=== PATIENT | male | born 1985 | race Two or more races ===

== ENCOUNTER 2020-04-09 09:49 | Inpatient (IN) | payer OTHER ==
--- NOTE | 2020-04-09 10:40 | BHS.RME ---
Substance Use & Tx History - Substance Use History Heroin Substance amount: 5 bags Frequency of use: Daily Substance route: Inhalation (ex: sniffing or snorting) Date of Last Use: 04/09/20 (4am) Marijuana/Hashish Substance amount: 1 joint Frequency of use: Less than 3 times per week Substance route: Smoking Date of Last Use: 04/05/20 Nicotine Substance amount: 1pack Frequency of use: Daily Substance route: Smoking Date of Last Use: 04/09/20 Physical/Psych/Mental Status - Behavior General Behavior: Increased activity (restlessness, agitation) Eye Contact: Normal - Cooperativeness Cooperativeness: Cooperative - Thinking Thought Processes: Tight, Logical, Goal Directed - Physical Health Problems Is patient presently having any pain?: No Does patient presently have any injuries (include location): No Does patient currently have a fever: No Is patient : No COWS - Scale Resting Pulse: 1= [place] 81-100 Sweatin= No chills or Flushing Restless Observation: 0= Sits Still Pupil Size: 1= Pupils >than Normal Bone or Joint Aches: 0= None Runny Nose/ Eye Tearin= None GI Upset > 30mins: 0= None Tremor Observation: 0= None Yawning Observation: 0= None Anxiety or Irritability: 2=Irritable/Anxious Goose Flesh Skin: 0=Smooth Skin COWS Score: 4
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
[2020-04-09] MEDS ORDERED: MAGNESIUM CITRATE 300 ML BOTTLE PO PRN (11:39)
[2020-04-09] MEDS ORDERED: MAG HYDROX/AL HYDROX/SIMETH 30 ML UNIT-DOSE CUP PO PRN (11:39)
[2020-04-09] MEDS ORDERED: METHADONE HCL 10 MG TABLET (FOR DETOX USE ONLY) PO ONE (11:39)
[2020-04-09] MEDS ORDERED: ONDANSETRON *ODT* 4 MG TABLET SL PRN (11:39)
[2020-04-09] MEDS ORDERED: MAGNESIUM HYDROX 2400MG/30ML ORAL SUSPENSION 30 ML CUP PO PRN (11:39)
[2020-04-09] MEDS ORDERED: MENTHOL/PHENOL 1 EACH UD MM PRN (11:39)
[2020-04-09] MEDS ORDERED: IBUPROFEN 400 MG TABLET (FP) PO PRN (11:39)
[2020-04-09] MEDS ORDERED: ACETAMINOPHEN 325 MG TABLET (FP) PO PRN ×2 (11:39)
[2020-04-09] MEDS ORDERED: BISMUTH SUBSALICYLATE 262 MG/15 ML BTL PO PRN (11:39)
[2020-04-09 12:07] VITALS: BMI 23.6
[2020-04-09] MEDS: hydrOXYzine PAMOATE 25 MG CAPSULE (FP) PO SCH ×3 (13:49→22:14)
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
[2020-04-09] MEDS: NICOTINE 21 MG/24 HOURS TOPICAL PATCH TD SCH (14:01)
[2020-04-09 16:50] LABS: HEMATOCRIT 41.4 % (35.4-49); MCHC 33.9 g/dl (32.0-35.9); MEAN CELL VOLUME 91.6 fl (80-96); MEAN PLT VOLUME 8.5 fl (7.5-11.1); PLATELET COUNT 273 K/MM3 (134-434); RBC 4.52 M/mm3 (4.00-5.60); RDW 13.8 % (11.9-15.9); WHITE BLOOD COUNT 6.5 K/mm3 (4.0-10.0)
[2020-04-09 16:58] LABS: ALBUMIN 4.4 g/dl (3.4-5.0); BILIRUBIN,TOTAL 0.2 mg/dL (0.2-1); BLOOD UREA NITROGEN 16.7 mg/dL (7-18); CALCIUM 9.2 mg/dL (8.5-10.1); POTASSIUM 3.3 mmol/L (3.5-5.1); TOT PROT 7.4 g/dl (6.4-8.2)
[2020-04-09] MEDS: NICOTINE POLACRILEX 2 MG GUM BUC PRN ×2 (18:09→21:06)
[2020-04-09] MEDS: THIAMINE HCL 100 MG TABLET (FP) PO SCH (22:13)
[2020-04-09] MEDS: MELATONIN 5 MG TABLETS PO SCH (22:14)
[2020-04-09] MEDS: SUVOREXANT 10 MG TABLET PO PRN (22:14)
[2020-04-10] MEDS: hydrOXYzine PAMOATE 25 MG CAPSULE (FP) PO SCH ×5 (05:21→21:42)
[2020-04-10] MEDS ORDERED: METHADONE HCL 5 MG TABLET (FOR DETOX USE ONLY) ONE (09:37)
[2020-04-10] MEDS ORDERED: METHADONE HCL 10 MG TABLET (FOR DETOX USE ONLY) ONE (09:37)
[2020-04-10] MEDS ORDERED: METHADONE (DETOX) 20 MG, METHADONE (DETOX) 5 MG PO ONE (10:00)
[2020-04-10] MEDS: POTASSIUM CHLORIDE TABS 20 MEQ TABLET.ER (FP) PO SCH (10:39)
[2020-04-10] MEDS: PRENATAL VITAMINS W/ FOLIC ACID TABLET (FP) PO SCH (10:40)
[2020-04-10] MEDS: NICOTINE 21 MG/24 HOURS TOPICAL PATCH TD SCH (10:40)
[2020-04-10] MEDS: NICOTINE POLACRILEX 2 MG GUM BUC PRN ×4 (10:44→21:46)
--- NOTE | 2020-04-10 13:02 | PN ---
S COWS - Scale Resting Pulse: 0= [place] 80 or Below Sweatin= No chills or Flushing Restless Observation: 1= Difficult to Sit Still Pupil Size: 1= Pupils >than Normal Bone or Joint Aches: 2= Severe Diffuse Aches Runny Nose/ Eye Tearin= Nasal Congestion GI Upset > 30mins: 2= Nausea/Diarrhea Tremor Observation of Outstretched Hands: 2= Slight Tremor Visible Yawning Observation: 1= 1-2x During Session Anxiety or Irritability: 2=Irritable/Anxious Goose Flesh Skin: 0=Smooth Skin COWS Score: 12 S Progress Note (SOAP) Subjective: alert,irritable,anxious,interrupted sleep,pain in the body and back, tremor,nausea Objective: 04/10/20 13:09 Vital Signs Temperature 97.5 F L 04/10/20 08:55 Pulse Rate 73 04/10/20 08:55 Respiratory Rate 18 04/10/20 08:55 Blood Pressure 110/73 04/10/20 08:55 O2 Sat by Pulse Oximetry (%) 97 04/10/20 05:10 04/10/20 13:09 Laboratory Last Values WBC 6.5 K/mm3 (4.0-10.0) 04/09/20 12:25 RBC 4.52 M/mm3 (4.00-5.60) 04/09/20 12:25 Hgb 14.0 GM/dL (11.7-16.9) 04/09/20 12:25 Hct 41.4 % (35.4-49) 04/09/20 12:25 MCV 91.6 fl (80-96) 04/09/20 12:25 MCH 31.0 pg (25.7-33.7) 04/09/20 12:25 MCHC 33.9 g/dl (32.0-35.9) 04/09/20 12:25 RDW 13.8 % (11.9-15.9) 04/09/20 12:25 Plt Count 273 K/MM3 (134-434) 04/09/20 12:25 MPV 8.5 fl (7.5-11.1) 04/09/20 12:25 Sodium 138 mmol/L (136-145) 04/09/20 12:25 Potassium 3.3 mmol/L (3.5-5.1) L 04/09/20 12:25 Chloride 102 mmol/L (98-107) 04/09/20 12:25 Carbon Dioxide 28 mmol/L (21-32) 04/09/20 12:25 Anion Gap 9 MMOL/L (8-16) 04/09/20 12:25 BUN 16.7 mg/dL (7-18) 04/09/20 12:25 Creatinine 1.0 mg/dL (0.55-1.3) 04/09/20 12:25 Est GFR (CKD-EPI)AfAm 114.11 04/09/20 12:25 Est GFR (CKD-EPI)NonAf 98.45 04/09/20 12:25 Random Glucose 90 mg/dL (74-106) 04/09/20 12:25 Calcium 9.2 mg/dL (8.5-10.1) 04/09/20 12:25 Total Bilirubin 0.2 mg/dL (0.2-1) 04/09/20 12:25 AST 9 U/L (15-37) L 04/09/20 12:25 ALT 18 U/L (13-61) 04/09/20 12:25 Alkaline Phosphatase 52 U/L (45-117) 04/09/20 12:25 Total Protein 7.4 g/dl (6.4-8.2) 04/09/20 12:25 Albumin 4.4 g/dl (3.4-5.0) 04/09/20 12:25 Syphilis Serology Non-reactive (NONREACTIVE) 04/09/20 12:25 Assessment: 04/10/20 13:10 withdrawal symptom Plan: continue detox methadone regimen ,k 3.3 will give k dur replacement 20 meq po daily for 3 days,repeat k in am
[2020-04-10] MEDS: METHOCARBAMOL 500 MG TABLET PO PRN (14:36)
[2020-04-10] MEDS: cloNIDine HCL 0.1 MG TABLET PO PRN ×2 (17:29→21:44)
[2020-04-10] MEDS: MELATONIN 5 MG TABLETS PO SCH (21:42)
[2020-04-10] MEDS: THIAMINE HCL 100 MG TABLET (FP) PO SCH (21:42)
[2020-04-10] MEDS: SUVOREXANT 10 MG TABLET PO PRN (21:42)
[2020-04-11] MEDS: hydrOXYzine PAMOATE 25 MG CAPSULE (FP) PO SCH ×2 (06:02→10:40)
[2020-04-11] MEDS: METHOCARBAMOL 500 MG TABLET PO PRN ×2 (06:05→12:24)
[2020-04-11] MEDS: NICOTINE POLACRILEX 2 MG GUM BUC PRN ×5 (06:06→22:32)
--- NOTE | 2020-04-11 09:58 | PN ---
S COWS - Scale Resting Pulse: 0= [place] 80 or Below Sweatin= No chills or Flushing Restless Observation: 0= Sits Still Pupil Size: 1= Pupils >than Normal Bone or Joint Aches: 2= Severe Diffuse Aches Runny Nose/ Eye Tearin= Nasal Congestion GI Upset > 30mins: 2= Nausea/Diarrhea Tremor Observation of Outstretched Hands: 2= Slight Tremor Visible Yawning Observation: 1= 1-2x During Session Anxiety or Irritability: 2=Irritable/Anxious Goose Flesh Skin: 0=Smooth Skin COWS Score: 11 S Progress Note (SOAP) Subjective: alert,irritable,anxious,interrupted sleep,pain in the body,tremor Objective: 04/11/20 09:57 Vital Signs Temperature 97.5 F L 04/11/20 08:38 Pulse Rate 62 04/11/20 08:38 Respiratory Rate 17 04/11/20 08:38 Blood Pressure 107/71 04/11/20 08:38 O2 Sat by Pulse Oximetry (%) 98 04/11/20 05:17 Laboratory Last Values WBC 6.5 K/mm3 (4.0-10.0) 04/09/20 12:25 RBC 4.52 M/mm3 (4.00-5.60) 04/09/20 12:25 Hgb 14.0 GM/dL (11.7-16.9) 04/09/20 12:25 Hct 41.4 % (35.4-49) 04/09/20 12:25 MCV 91.6 fl (80-96) 04/09/20 12:25 MCH 31.0 pg (25.7-33.7) 04/09/20 12:25 MCHC 33.9 g/dl (32.0-35.9) 04/09/20 12:25 RDW 13.8 % (11.9-15.9) 04/09/20 12:25 Plt Count 273 K/MM3 (134-434) 04/09/20 12:25 MPV 8.5 fl (7.5-11.1) 04/09/20 12:25 Sodium 138 mmol/L (136-145) 04/09/20 12:25 Potassium 3.3 mmol/L (3.5-5.1) L 04/09/20 12:25 Chloride 102 mmol/L (98-107) 04/09/20 12:25 Carbon Dioxide 28 mmol/L (21-32) 04/09/20 12:25 Anion Gap 9 MMOL/L (8-16) 04/09/20 12:25 BUN 16.7 mg/dL (7-18) 04/09/20 12:25 Creatinine 1.0 mg/dL (0.55-1.3) 04/09/20 12:25 Est GFR (CKD-EPI)AfAm 114.11 04/09/20 12:25 Est GFR (CKD-EPI)NonAf 98.45 04/09/20 12:25 Random Glucose 90 mg/dL (74-106) 04/09/20 12:25 Calcium 9.2 mg/dL (8.5-10.1) 04/09/20 12:25 Total Bilirubin 0.2 mg/dL (0.2-1) 04/09/20 12:25 AST 9 U/L (15-37) L 04/09/20 12:25 ALT 18 U/L (13-61) 04/09/20 12:25 Alkaline Phosphatase 52 U/L (45-117) 04/09/20 12:25 Total Protein 7.4 g/dl (6.4-8.2) 04/09/20 12:25 Albumin 4.4 g/dl (3.4-5.0) 04/09/20 12:25 Syphilis Serology Non-reactive (NONREACTIVE) 04/09/20 12:25 COVID-19 ([facility]AUGHN) Not detected (Not Detected) 04/09/20 14:00 Assessment: 04/11/20 10:00 withdrawal symptom Plan: continue detox methadone regimens,valium 10 mgs po q 4hrs prn for 72 hrs for severe withdrawal,fluid,on k replacement,repeat k pending
[2020-04-11] MEDS ORDERED: METHADONE HCL 10 MG TABLET (FOR DETOX USE ONLY) PO ONE (10:00)
[2020-04-11] MEDS: NICOTINE 21 MG/24 HOURS TOPICAL PATCH TD SCH (10:40)
[2020-04-11] MEDS: PRENATAL VITAMINS W/ FOLIC ACID TABLET (FP) PO SCH (10:40)
[2020-04-11] MEDS: POTASSIUM CHLORIDE TABS 20 MEQ TABLET.ER (FP) PO SCH (10:40)
[2020-04-11] MEDS: cloNIDine HCL 0.1 MG TABLET PO PRN (12:24)
[2020-04-11] MEDS: diazePAM 5 MG TABLET PO PRN ×2 (17:18→22:03)
[2020-04-11] MEDS: hydrOXYzine PAMOATE 25 MG CAPSULE (FP) PO PRN ×2 (18:18→22:04)
[2020-04-11] MEDS: THIAMINE HCL 100 MG TABLET (FP) PO SCH (22:03)
[2020-04-11] MEDS: SUVOREXANT 10 MG TABLET PO PRN (22:04)
[2020-04-11] MEDS: MELATONIN 5 MG TABLETS PO SCH (22:04)
[2020-04-12] MEDS ORDERED: METHADONE HCL 5 MG TABLET (FOR DETOX USE ONLY) ONE (08:34)
[2020-04-12] MEDS ORDERED: METHADONE HCL 10 MG TABLET (FOR DETOX USE ONLY) ONE (08:34)
[2020-04-12] MEDS: NICOTINE POLACRILEX 2 MG GUM BUC PRN ×6 (09:04→21:16)
--- NOTE | 2020-04-12 09:34 | PN ---
[facility] Progress Note Note: Patient reports sleeping poorly despite taking Belsomra 10 mg/hs. Told investigative writer that he slept after taking the medication but woke up in the middle of the night and could not go back to sleep. He requests to be ordered Ambien or Xanax. When told that these medications are not available in this facility, he settles on a higher dose of Belsomra
[2020-04-12] MEDS ORDERED: METHADONE (DETOX) 10 MG, METHADONE (DETOX) 5 MG PO ONE (10:00)
--- NOTE | 2020-04-12 10:42 | PN ---
BHS COWS - Scale Resting Pulse: 0= [place] 80 or Below Sweatin= No chills or Flushing Restless Observation: 0= Sits Still Pupil Size: 1= Pupils >than Normal Bone or Joint Aches: 1= Mild Discomfort Runny Nose/ Eye Tearin= Nasal Congestion GI Upset > 30mins: 1= Stomach Cramp Tremor Observation of Outstretched Hands: 2= Slight Tremor Visible Yawning Observation: 1= 1-2x During Session Anxiety or Irritability: 2=Irritable/Anxious Goose Flesh Skin: 0=Smooth Skin COWS Score: 9 BHS Progress Note (SOAP) Subjective: alert,irritable,anxious,interrupted sleep,pain in the body and back Objective: 04/12/20 10:41 Vital Signs Temperature 97.5 F L 04/12/20 08:45 Pulse Rate 73 04/12/20 08:45 Respiratory Rate 18 04/12/20 08:45 Blood Pressure 106/75 04/12/20 08:45 O2 Sat by Pulse Oximetry (%) 98 04/12/20 08:45 04/12/20 10:41 withdrawal symptom Assessment: 04/12/20 10:42 withdrawal symptom Plan: continue detox methadone regimen,psychiatric reevaluation for insomnia
[2020-04-12] MEDS: PRENATAL VITAMINS W/ FOLIC ACID TABLET (FP) PO SCH (10:48)
[2020-04-12] MEDS: NICOTINE 21 MG/24 HOURS TOPICAL PATCH TD SCH (10:48)
[2020-04-12] MEDS: POTASSIUM CHLORIDE TABS 20 MEQ TABLET.ER (FP) PO SCH (10:48)
[2020-04-12] MEDS: diazePAM 5 MG TABLET PO PRN ×4 (10:51→22:14)
[2020-04-12] MEDS: hydrOXYzine PAMOATE 25 MG CAPSULE (FP) PO PRN ×3 (12:54→21:23)
[2020-04-12] MEDS: METHOCARBAMOL 500 MG TABLET PO PRN ×2 (13:47→20:03)
[2020-04-12] MEDS: MELATONIN 5 MG TABLETS PO SCH (21:22)
[2020-04-12] MEDS: SUVOREXANT 20 MG TABLET PO PRN (21:23)
[2020-04-12] MEDS: THIAMINE HCL 100 MG TABLET (FP) PO SCH (21:23)
[2020-04-13] MEDS ORDERED: METHADONE HCL 10 MG TABLET (FOR DETOX USE ONLY) PO ONE (10:00)
[2020-04-13] MEDS: PRENATAL VITAMINS W/ FOLIC ACID TABLET (FP) PO SCH (10:01)
[2020-04-13] MEDS: NICOTINE POLACRILEX 2 MG GUM BUC PRN ×5 (10:02→22:05)
[2020-04-13] MEDS: NICOTINE 21 MG/24 HOURS TOPICAL PATCH TD SCH (10:02)
[2020-04-13] MEDS: diazePAM 5 MG TABLET PO PRN ×4 (10:03→22:06)
[2020-04-13] MEDS: hydrOXYzine PAMOATE 25 MG CAPSULE (FP) PO PRN ×4 (10:04→22:06)
--- NOTE | 2020-04-13 11:29 | PN ---
BHS COWS - Scale Resting Pulse: 0= [place] 80 or Below Sweatin= No chills or Flushing Restless Observation: 1= Difficult to Sit Still Pupil Size: 0= Normal to Room Light Bone or Joint Aches: 2= Severe Diffuse Aches Runny Nose/ Eye Tearin= None GI Upset > 30mins: 0= None Tremor Observation of Outstretched Hands: 0= None Yawning Observation: 0= None Anxiety or Irritability: 2=Irritable/Anxious Goose Flesh Skin: 0=Smooth Skin COWS Score: 5 BHS Progress Note (SOAP) Subjective: Complaints of sweats, body aches and anxiety. Objective: 04/13/20 11:26 Vital Signs 04/13/20 04/13/20 05:03 08:45 Temperature 97.3 F L 98.4 F Pulse Rate 62 63 Respiratory 16 16 Rate Blood Pressure 111/67 109/72 O2 Sat by Pulse 100 100 Oximetry (%) Laboratory Last Values WBC 6.5 K/mm3 (4.0-10.0) 04/09/20 12:25 RBC 4.52 M/mm3 (4.00-5.60) 04/09/20 12:25 Hgb 14.0 GM/dL (11.7-16.9) 04/09/20 12:25 Hct 41.4 % (35.4-49) 04/09/20 12:25 MCV 91.6 fl (80-96) 04/09/20 12:25 MCH 31.0 pg (25.7-33.7) 04/09/20 12:25 MCHC 33.9 g/dl (32.0-35.9) 04/09/20 12:25 RDW 13.8 % (11.9-15.9) 04/09/20 12:25 Plt Count 273 K/MM3 (134-434) 04/09/20 12:25 MPV 8.5 fl (7.5-11.1) 04/09/20 12:25 Sodium 138 mmol/L (136-145) 04/09/20 12:25 Potassium 4.2 mmol/L (3.5-5.1) 04/11/20 07:50 Chloride 102 mmol/L (98-107) 04/09/20 12:25 Carbon Dioxide 28 mmol/L (21-32) 04/09/20 12:25 Anion Gap 9 MMOL/L (8-16) 04/09/20 12:25 BUN 16.7 mg/dL (7-18) 04/09/20 12:25 Creatinine 1.0 mg/dL (0.55-1.3) 04/09/20 12:25 Est GFR (CKD-EPI)AfAm 114.11 04/09/20 12:25 Est GFR (CKD-EPI)NonAf 98.45 04/09/20 12:25 Random Glucose 90 mg/dL (74-106) 04/09/20 12:25 Calcium 9.2 mg/dL (8.5-10.1) 04/09/20 12:25 Total Bilirubin 0.2 mg/dL (0.2-1) 04/09/20 12:25 AST 9 U/L (15-37) L 04/09/20 12:25 ALT 18 U/L (13-61) 04/09/20 12:25 Alkaline Phosphatase 52 U/L (45-117) 04/09/20 12:25 Total Protein 7.4 g/dl (6.4-8.2) 04/09/20 12:25 Albumin 4.4 g/dl (3.4-5.0) 04/09/20 12:25 Syphilis Serology Non-reactive (NONREACTIVE) 04/09/20 12:25 COVID-19 ([facility]N) Not detected (Not Detected) 04/09/20 14:00 Labs noted. Assessment: 04/13/20 11:28 Alert and oriented x 3, in no acute respiratory distress. Full ROM, ambulating in the unit without assistance. Mild withdrawal symptoms. D/c to [facility] in AM. Plan: Continue detox protocol. D/C to [facility] in AM.
[2020-04-13] MEDS: METHOCARBAMOL 500 MG TABLET PO PRN ×2 (12:21→18:33)
[2020-04-13] MEDS: MELATONIN 5 MG TABLETS PO SCH (22:05)
[2020-04-13] MEDS: THIAMINE HCL 100 MG TABLET (FP) PO SCH (22:06)
[2020-04-13] MEDS: SUVOREXANT 20 MG TABLET PO PRN (22:06)
[2020-04-14] MEDS: hydrOXYzine PAMOATE 25 MG CAPSULE (FP) PO PRN (05:56)
[2020-04-14] MEDS: METHOCARBAMOL 500 MG TABLET PO PRN (05:56)
[2020-04-14] MEDS ORDERED: METHADONE HCL 5 MG TABLET (FOR DETOX USE ONLY) PO ONE (06:00)
[2020-04-14 06:52] VITALS: BP 128/67; PULSE 83; TEMP 97.3
[2020-04-14] MEDS: diazePAM 5 MG TABLET PO PRN (07:35)
[2020-04-14] MEDS: NICOTINE POLACRILEX 2 MG GUM BUC PRN (07:39)
--- NOTE | 2020-04-14 15:52 | DS ---
[facility] Detox Discharge Summary Admission Date: 04/09/20 Discharge Date: 04/14/20 - History Present History: Cannabis Dependence, Opioid Dependence Additional Comments: Patient completed detox successfully and discharged safely in stable condition. Rapid response team called outside in [facility] parking lot and it was for this patient who was unconscious after OD on heroin. He received Narcan intranasal x2 and IM once then regained consciousness. He told the rapid response team that he went to the [place] and he returned to [facility] awaiting for his father to pick him up as he is scheduled for inpatient rehab tomorrow at another site. Patient said he took 1 bag of heroin but when EMS arrived he told the EMT that he took 2 bags of heroin. Patient initially resisted transfer to ER but stated he will go. Pertinent Past History: Nicotine dependence Opioid dependence - Physical Exam Results Vital Signs: Vital Signs Temperature 97.3 F L 04/14/20 05:23 Pulse Rate 83 04/14/20 05:23 Respiratory Rate 18 04/14/20 05:23 Blood Pressure 128/67 04/14/20 05:23 O2 Sat by Pulse Oximetry (%) 98 04/14/20 05:23 Pertinent Admission Physical Exam Findings: Withdrawal sxs Laboratory Tests 04/09/20 04/09/20 04/09/20 12:25 12:25 12:25 WBC 6.5 RBC 4.52 Hgb 14.0 Hct 41.4 MCV 91.6 MCH 31.0 MCHC 33.9 RDW 13.8 Plt Count 273 MPV 8.5 Sodium 138 Potassium 3.3 L Chloride 102 Carbon Dioxide 28 Anion Gap 9 BUN 16.7 Creatinine 1.0 Est GFR (CKD-EPI)AfAm 114.11 Est GFR (CKD-EPI)NonAf 98.45 Random Glucose 90 Calcium 9.2 Total Bilirubin 0.2 AST 9 L ALT 18 Alkaline Phosphatase 52 Total Protein 7.4 Albumin 4.4 Syphilis Serology Non-reactive COVID-19 ([facility]) 04/09/20 04/11/20 14:00 07:50 WBC RBC Hgb Hct MCV MCH MCHC RDW Plt Count MPV Sodium Potassium 4.2 Chloride Carbon Dioxide Anion Gap BUN Creatinine Est GFR (CKD-EPI)AfAm Est GFR (CKD-EPI)NonAf Random Glucose Calcium Total Bilirubin AST ALT Alkaline Phosphatase Total Protein Albumin Syphilis Serology COVID-19 ([facility]) Not detected Labs reviewed - Treatment Hospital Course: Detox Protocol Followed, Detoxed Safely, Responded well, Discharged Condition Good - Medication Discharge Medications: Ambulatory Orders NK [No Known Home Medication] 04/09/20 - Diagnosis (1) Cannabis dependence Status: Acute (2) Opioid dependence with withdrawal Status: Acute (3) Opioid overdose Status: Acute Qualifiers: Encounter type: initial encounter Injury intent: accidental or unintentional Qualified Code(s): T40.2X1A - Poisoning by other opioids, accidental (unintentional), initial encounter (4) Nicotine dependence Status: Chronic - AMA Did Patient Leave Against Medical Advice: No (Instructed to follow up with PCP within 1 week)
== END 2020-04-14 09:20 | disposition home or self-care (01) | DRG 773 ==
LOC: YASAS 09:49 → Y6N 12:50
PROVIDERS: ADMIT Allergy & Immunology; ATTEND Allergy & Immunology
PROC: HZ2ZZZZ Detoxification Services for Substance Abuse Treatment (ICD-10-PCS; principal; 2020-04-09)
DX: F11.23 Opioid dependence with withdrawal (principal); F12.20 Cannabis dependence, uncomplicated; F17.210 Nicotine dependence, cigarettes, uncomplicated; F19.282 Other psychoactive substance dependence with psychoactive substance-induced sleep disorder; F19.280 Other psychoactive substance dependence with psychoactive substance-induced anxiety disorder; F19.24 Other psychoactive substance dependence with psychoactive substance-induced mood disorder; F41.1 Generalized anxiety disorder; Z90.81 Acquired absence of spleen; T40.1X1A Poisoning by heroin, accidental (unintentional), initial encounter; Y92.238 Other place in hospital as the place of occurrence of the external cause
CPT/HCPCS: 36415; 80053; 84132; 85027; 86780; J0735; U0003

== ENCOUNTER 2020-04-14 11:10 | Emergency (ER) | payer BC, OTHER ==
[2020-04-14 11:54] VITALS: TEMP 98.3; BMI 24.2
--- NOTE | 2020-04-14 12:19 | PDOC ---
History of Present Illness - General Chief Complaint: Overdose Stated Complaint: OVERDOSE Time Seen by Provider: 04/14/20 11:30 History Source: Patient Exam Limitations: No Limitations - History of Present Illness Initial Comments: 04/14/20 12:09 35y M hx of heroin abuse presents with complaint of opiate intoxication. The patient completed his detox for heroin today and was ready to be discharged, he was sitting outside and baught 10$ baggie of heroin and used it. He was found to be unresponsive by staff at detox per EMS, Give 4intranasal and 4mg IM narcan with effective reversal. The pt currently feels fine. States he just has the sensation to have a BM. Denies any other sx including cp, sob, headache, palpitations, dizzyness, n/v, abd pain, sob. Pt states he was clean for the past 6 days. He denies using anything else. Dad is present and was planning on bringing him home today, then to rehab tomorrow. Social: opiate abuse, occasional marijuana use Past History - Medical History Allergies/Adverse Reactions: Allergies Allergy/AdvReac Type Severity Reaction Status Date / Time No Known Drug Allergies Allergy Verified 04/14/20 11:14 Home Medications: Ambulatory Orders NK [No Known Home Medication] 04/09/20 Asthma: No Cardiac Disorders: No COPD: No Diabetes: No GI Disorders: No Disorders: No HTN: No Kidney Stones: No Seizures: No - Surgical History Abdominal Surgery: Yes (pt reports spleenectomy at end of (pt unsure of date)) Appendectomy: No Cardiac Surgery: No Cholecystectomy: No Lung Surgery: No Neurologic Surgery: No Orthopedic Surgery: No - Reproductive History Testicular Surgery: No - Psycho-Social/Smoking History Smoking History: Current every day smoker Have you smoked in the past 12 months: Yes Number of Cigarettes Smoked Daily: 20 Cigars Per Day: 0 Information on smoking cessation initiated: No 'Breaking Loose' booklet given: 04/09/20 - Substance Abuse Hx (Audit-C & DAST Scrn) How often the patient has a drink containing alcohol: Never Score: In Men: 4 or > Positive; In Women: 3 or > Positive: 0 Screen Result (Pos requires Nsg. Audit-10AR): Negative In the last yr the pt used illegal drug/Rx for NonMed reason: Yes Score: Yes response is considered Positive: 1 Screen Result (Positive result requires Nsg. DAST-10): Positive Review of Systems - Review of Systems Able to Perform ROS?: Yes Comments:: 04/14/20 12:19 Constitutional - no reported Fever, Chills, HEENT: no reported vision changes, sore throat Respiratory: no reported cough, sob, hemoptysis Cardiac: no reported chest pain, palpitations, light headedness, leg swelling Abd/GI: +diarrhea no reported abd pain, nausea, vomiting, blood per rectum, melena : no reported dysuria, frequency, discharge Musculskelatal - no reported back pain, joint swelling skin - no reported bruising, erythema, rash neurological: no reported headache, numbness, focal weakness, tingling, ataxia, hematologic: no reported easy bruising, easy bleeding *Physical Exam - Vital Signs Last Vital Signs Temp Pulse Resp BP Pulse Ox 98.3 F 101 H 16 121/90 99 04/14/20 11:31 04/14/20 11:31 04/14/20 11:31 04/14/20 11:31 04/14/20 11:31 - Physical Exam 04/14/20 12:21 GENERAL: The patient is awake, alert, and fully oriented, Nontoxic - in no acute distress. HEAD: Normocephalic, atraumatic. EYES: extraocular movements intact, sclera anicteric, conjunctiva clear. pupils 3mm symmetrically ENT: Normal voice, Moist mucous membranes. NECK: Normal range of motion, supple LUNGS: Breath sounds equal, clear to auscultation bilaterally. No wheezes, no rhonchi, no rales. HEART: Regular rate and rhythm, normal S1 and S2 without murmur, rub or gallop. ABDOMEN: Soft, nontender, No guarding, no rebound. No CVA tenderness EXTREMITIES: Normal range of motion, no edema. NEUROLOGICAL: No facial assymetry, Normal speech, PSYCH: Normal mood, normal affect. SKIN: Warm, Dry, normal turgor, Medical Decision Making - Medical Decision Making 04/14/20 12:22 35-year-old gentleman history of opiate abuse, status post 6 days of detox, took 1 baggy of heroin and was given IM and intranasal Narcan with, currently asymptomatic beside urgency to go to have a bowel movement. We will continue to observe the patient until 1:30 (half lief of narcan) -if the patient is still at his normal baseline mental status will discharge patient into care of his father who plans on bringing him to rehab tomorrow. 04/14/20 13:23 pt feeling well here. no n/v awake, alert still feels freqeunt raquel Griffith his narcan will dc to care of his fater. return precautions were discussed I discussed the physical exam findings, ancillary test results and final diagnoses with the patient. I answered all of the patient's questions. The patient was satisfied with the care received and felt comfortable with the discharge plan and treatment plan. The patient will call their primary care physician within 24 hours to arrange follow-up and will return to the Emergency Department with any new, persistent or worsening symptoms. Discharge - Discharge Information Problems reviewed: Yes Clinical Impression/Diagnosis: Opioid dependence with withdrawal Opioid overdose Qualifiers: Encounter type: initial encounter Injury intent: accidental or unintentional Qualified Code(s): T40.2X1A - Poisoning by other opioids, accidental (unintentional), initial encounter Condition: Improved Disposition: HOME - Admission No - Follow up/Referral Referrals: [facility] [place] [facility] [Provider Group] - Patient Discharge Instructions Patient Printed Discharge Instructions: DI for Opioid Addiction Additional Instructions: Return to the emergency department immediately with ANY new, persistent or worsening symptoms. You MUST call and follow up with your doctor tomorrow for further evaluation of your symptoms. Results were discussed with you. Please make sure your doctor re views the results of your emergency evaluation. Your Emergency Department visit is not complete without a follow up with your doctor. If you had any xrays during your visit, it was read preliminarily by myself, a Radiologist will review it and if there are any additional findings we will call you. Print Language: TELUGU - Post Discharge Activity
[2020-04-14 13:38] VITALS: BP 123/88; PULSE 102
== END 2020-04-14 13:38 | disposition home or self-care (01) ==
LOC: JER 11:10
DX: T40.1X1A Poisoning by heroin, accidental (unintentional), initial encounter (principal); F11.23 Opioid dependence with withdrawal
CPT/HCPCS: 99282-25